=== PATIENT | male | born 1940 | race Caucasian/White ===

== ENCOUNTER 2017-02-14 10:51 | Outpatient (CLI) | payer MEDICARE, OTHER ==
[~2017-02-14] VITALS: Ht 158.8 cm; Wt 71.8 kg
[2017-02-14 13:31] VITALS: BP 147/66; PULSE 65; RESP 18; Ht 158.8 cm; Wt 71.8 kg
[2017-02-14] MEDS ORDERED: FAMO40TA52 PO (14:07)
[2017-02-14] MEDS ORDERED: METO10TA96 PO (14:07)
[2017-02-14] MEDS ORDERED: TAMS0.4C2 PO (14:07)
[2017-02-14] MEDS ORDERED: DUTA0.5C PO (14:07)
--- NOTE | 2017-02-14 16:21 | CONS ---
[facility] INITIAL OUTPATIENT CONSULTATION NOTE DATE OF CONSULTATION: 02/14/2017 PLACE OF SERVICE: [facility] ASSESSMENT AND PLAN: A very pleasant but unfortunate 76-year-old gentleman with multiple comorbid issues as well as a complicated presentation of a mass in the liver as well as mass in the spleen in the setting of prior bladder cancer as well as cirrhosis that is likely due to hepatitis C as well as alcohol abuse. I agree with Dr. Hicks' impression that this is likely not going to be benefited by surgical removal, given presence of a lesion in the spleen. However, the picture is a somewhat unusual presentation for hepatocellular carcinoma and for this reason, I strongly recommended that we consider a percutaneous image-guided liver biopsy at which point we can also biopsy the normal liver and see the degree of the cirrhosis. If this is hepatocellular carcinoma and has metastasized to the spleen, then the treatment options are significantly limited. Surgery would not be an option. Local treatment of the liver would only treat the liver, but they would not change the splenic issue and should essentially be reserved for palliative symptom control-type interventions. Systemic chemotherapy unfortunately has very little efficacy against hepatocellular carcinoma, but could be entertained as part of the treatment. Certainly maximization of quality of life should be highest priority during any treatment phase and afterwards. If the lesion proves to be different than hepatocellular carcinoma, the treatment may differ as well and could potentially have different expected outcomes. A Multidisciplinary Tumor Board presentation would be very useful in this setting as well. I explained all of this in detail with the patient and family and answered all their questions to the best of my ability. I believe that the patient and family understood and agreed with the plan. With above assessment, I recommended the followin. Percutaneous liver biopsy to include biopsy of normal liver. 2. Multidisciplinary Tumor Board presentation. 3. Follow up with us and oncology as per above. Thank you again for allowing us to participate in the care of this very pleasant gentleman and his wonderful family. If there are any questions, please feel free to contact me at [phone]. UPDATED CLINICAL SUMMARY: A very pleasant but unfortunate 76-year-old gentleman with multiple comorbid issues including history of bladder cancer, status post surgery in 2012 as well as hepatitis C and alcohol abuse until about a year ago, presenting with a rather complicated picture of right hepatic lobe mass that appears to be 7 cm x 4.5 lesion in the background of moderate to severe cirrhotic changes, worrisome for malignant process. Interestingly, the patient also has ill-defined large splenic lesion occupying a significant portion of the spleen measuring up to 11 cm in craniocaudal length. The liver lesion is read as LI-RADS/OPTN, Category 5 B and suspicious for malignancy. COMORBIDITIES: 1. BMI 28.5. 2. Hepatitis C, genotype 2, platelets 95,000, INR 1.45, total bilirubin 0.6, albumin 2.9, 11/2016; CT abdomen and pelvis 11/22/2016 showed above-mentioned lesion which was thought to be new compared to CT of the abdomen and pelvis 2013. 3. Liver cyst. 4. Hepatitis A immune. 5. Hepatitis B immune. 6. Alcoholism in remission, quit a year ago. 7. Glaucoma. 8. History of head trauma around 2009 while in [place]. He has memory problems and headaches. 9. Bladder difficulties including history of bladder cancer, status post cystoscopy 11/21/2016 showing no evidence of papillary bladder tumor. 10. Status post eye surgery 2013. 11. Status post endoscopy. 12. History of urinary frequency and urgency. 13. Alzheimer's. 14. Neck and cervical spine fracture. 15. Osteoporosis. 16. Degenerative arthritis. 17. High-grade transitional cell carcinoma of bladder, grade III with lamina propria invasion and carcinoma in situ, non-muscle invasive. 18. Epigastric lipoma status post removal 20 years ago. 19. Above-mentioned alcohol abuse, a large prostate with lower urinary tract symptoms. 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 21. Esophageal varices grade I/type 2, gastroesophageal varices. 22. Acute gastritis. 23. H. pylori negative, but antrum with mild reactive gastropathy. 14. Status post colonoscopy 10/31/2013 showing internal hemorrhoids and 8 mm polyp in the hepatic flexure as well as diverticulosis in the ascending colon. Benign biopsy findings. HISTORY OF PRESENT ILLNESS: The patient is a very pleasant but unfortunate 76- year-old gentleman with above-mentioned complex past medical and surgical history who was referred to us for a second opinion regarding possible management of his liver mass which appears to be hepatocellular carcinoma in the setting of hepatitis C as well as alcohol-related cirrhosis. Patient also has the above-mentioned history of bladder cancer and has the splenic lesion which is somewhat unusual in the setting. Patient was seen by Dr. Meng Hicks who had recommended no surgical intervention. Patient did not have any major complaints during my visit, but the family reported that he has lost quite a bit of weight and has no appetite and is complaining of fatigue. ALLERGIES: NO KNOWN DRUG ALLERGIES. MEDICATIONS: Include: 1. Avodart. 2. Famotidine. 3. Metoclopramide. 4. Tamsulosin. SOCIAL HISTORY: The patient was born in [facility]. He is and has 3 children and currently is retired. He did receive transfusions at age 21. He used to drink heavily until a few years ago. He does not report any smoking and no intravenous drug use. FAMILY HISTORY: Patient's mother of old age. Father is also and there is no mention of major medical, surgical or oncologic problems in the family. REVIEW OF SYSTEMS: Other than the above-mentioned, there are no other pertinent positives or pertinent negatives in a complete 14-point review of systems. PHYSICAL EXAMINATION: GENERAL: The patient appears to be a very pleasant gentleman of descent, appearing stated age, sitting in a chair comfortably and in no acute distress. His BMI is 28.5. VITAL SIGNS: Temperature 97.6, blood pressure 147/66, pulse 65, respiratory rate 18, pulse oximetry 98% on room air. HEENT: Normocephalic and atraumatic. Extraocular muscles and hearing are grossly intact bilaterally and symmetrically. Sclerae are nonicteric. Oral cavity is clear; oral mucosa appeared to be pink and moist. Dentition: poor. NECK: Supple. There is no lymphadenopathy or JVD. There is no submental, submandibular or supraclavicular lymphadenopathy. CHEST: Rises symmetrically with each breath; patient is breathing comfortably. There are no audible wheezes, rales or rhonchi on the gross exam. HEART: Pulse is regular and palpable on the right wrist. Capillary refill was normal. Carotid pulses are palpable bilaterally and symmetrically in the neck. EXTREMITIES: Lower extremities contain no pitting edema around the ankles bilaterally and symmetrically. ABDOMEN: Soft, nondistended, and for the most part nontender. There is no evidence of caput medusae, engorged subcutaneous veins, obvious organomegaly or ascites. There are no peritoneal signs or guarding. SKIN: Appears to be pink and feels warm to touch. NEUROLOGIC: Awake, alert, and follows commands appropriately. LABORATORY DATA: Dated 11/21/2016: Creatinine 1.1, total bilirubin 0.6, alkaline phosphatase 133, AST 251, ALT 199. CEA 1.2. CA 19-9 is 24. Also, see above. IMAGING STUDIES: As above. Note that I personally reviewed all the available and pertinent images and I agree in general with their overall reported findings. Dictated By: ZAHIDA KIDD MD KK/NTS Conf#: [id number] DID#: [id number] CC: Kalin Vargas MD; Robert Enriquez MD; Kip Galvan MD; Johnny Garcia MD;* EndCC* MTDD
== END 2017-02-14 15:36 | disposition home or self-care (01) ==
LOC: HPC 10:51
PROVIDERS: ATTEND Transplant Surgery
DX: R16.0 Hepatomegaly, not elsewhere classified (principal); R16.1 Splenomegaly, not elsewhere classified; Z85.51 Personal history of malignant neoplasm of bladder; B19.20 Unspecified viral hepatitis C without hepatic coma; K74.60 Unspecified cirrhosis of liver; F10.21 Alcohol dependence, in remission; H40.9 Unspecified glaucoma; G30.9 Alzheimer's disease, unspecified; F02.80 Dementia in other diseases classified elsewhere, unspecified severity, without behavioral disturbance, psychotic disturbance, mood disturbance, and anxiety
CPT/HCPCS: G0463

== ENCOUNTER 2017-04-11 10:59 | Outpatient (CLI) | payer MEDICARE, OTHER ==
[~2017-04-11] VITALS: Ht 158.8 cm; Wt 62.7 kg
[~2017-04-11 10:59] MED LIST: DUTA0.5C PO; FAMO40TA52 PO; METO10TA96 PO; TAMS0.4C2 PO
[2017-04-11 11:12] VITALS: BP 129/61; PULSE 56; RESP 18; Ht 158.8 cm; Wt 62.7 kg
[2017-04-11] MEDS ORDERED: DICL75TA2 PO (11:31)
[2017-04-11] MEDS ORDERED: SPIR50TA PO (11:31)
[2017-04-11] MEDS ORDERED: DICY10CA60 PO (11:31)
[2017-04-11] MEDS ORDERED: OMEP40CA6 PO (11:31)
[2017-04-11] MEDS ORDERED: CYCL1DRO BOTH EYES (11:31)
--- NOTE | 2017-04-11 20:10 | PN ---
Date/Time of Note Date/Time of Note DATE: 04/11/17 TIME: 20:06 Assessment/Plan Assessment/Plan Assessment/Plan [facility] Outpatient Progress Note Date of Service: 04/11/2017 Today's Assessment & Plan: Rather complicated picture of borderline resectable hepatocellular carcinoma in the setting of cirrhosis. We had a chance to present the patient's case in our multidisciplinary tumor board where the recommendation was to consider transarterial chemoembolization as an attempt to control this lesion and to perhaps decreased size while considering selective right-sided portal vein embolization as an attempt to increase the volume of the remaining liver and to maximize degree of safety of a potential surgical resection. Surgical resection would include removal of segments 5 and 6 at a minimum. It may require a formal right lobectomy, which I do not believe that the patient could tolerate. These issues may have to be sorted out in the operating room with intraoperative ultrasound. Furthermore, patient had a decompensation per the report which included ascites that required tapping and this certainly is concerning about his resectability. Per the report, transarterial chemo sedation was performed at an outside hospital. I have currently requested available records to review. If that is true, the patient could then wait for 2 -3 months prior to reimaging to see the effects of the TACE. In the meantime, portal vein embolization could be considered and arrange for. Overall, I believe that the patient's chances of being resectable are low. He could potentially be a transplant candidate and for this reason I am also recommending that he undergoes transplant evaluation. I explained all this to the patient and family and answered all their questions to the best my ability. I believe that they understood and agreed with the plans. With above assessment, I've recommended the following for today: 1. Obtain and review outside records 2. If TACE has indeed been done, to schedule patient for follow-up liver CT in 2-3 months 3. Discussed selective portal vein embolization with interventional radiology and arrange for it if indicated 4. Careful follow-up with hepatology 5. Careful follow-up with us 6. Transplant evaluation Thank you again for your great care of this very pleasant gentleman and his wonderful family. If there are any questions, please feel free to call me at . Nature of presenting problem: High complexity Decision making: High complexity Disclaimer: Inadvertent spelling and grammatical errors are likely due to EHR/ dictation software use and do not reflect on the quality of delivered patient care. Also, please note that the electronic time recorded on this node does not necessarily reflect the actual time of the visit. Updated Clinical Summary: A very pleasant but unfortunate 76-year-old gentleman with multiple comorbid issues including history of bladder cancer, status post surgery in 2012 as well as hepatitis C and alcohol abuse until about a year ago, presenting with a rather complicated picture of right hepatic lobe mass that appears to be 7 cm x 4.5 lesion in the background of moderate to severe cirrhotic changes, worrisome for malignant process. Interestingly, the patient also has ill-defined large splenic lesion occupying a significant portion of the spleen measuring up to 11 cm in craniocaudal length. The liver lesion is read as LI-RADS/OPTN, Category 5 B and suspicious for malignancy. COMORBIDITIES: 1. BMI 28.5. 2. Hepatitis C, genotype 2, platelets 95,000, INR 1.45, total bilirubin 0.6, albumin 2.9, 11/2016; CT abdomen and pelvis 11/22/2016 showed above-mentioned lesion which was thought to be new compared to CT of the abdomen and pelvis 2013. 3. Liver cyst. 4. Hepatitis A immune. 5. Hepatitis B immune. 6. Alcoholism in remission, quit a year ago. 7. Glaucoma. 8. History of head trauma around 2009 while in [place]. He has memory problems and headaches. 9. Bladder difficulties including history of bladder cancer, status post cystoscopy 11/21/2016 showing no evidence of papillary bladder tumor. 10. Status post eye surgery 2013. 11. Status post endoscopy. 12. History of urinary frequency and urgency. 13. Alzheimer's. 14. Neck and cervical spine fracture. 15. Osteoporosis. 16. Degenerative arthritis. 17. High-grade transitional cell carcinoma of bladder, grade III with lamina propria invasion and carcinoma in situ, non-muscle invasive. 18. Epigastric lipoma status post removal 20 years ago. 19. Above-mentioned alcohol abuse, a large prostate with lower urinary tract symptoms. 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 21. Esophageal varices grade I/type 2, gastroesophageal varices. 22. Acute gastritis. 23. H. pylori negative, but antrum with mild reactive gastropathy. 14. Status post colonoscopy 10/31/2013 showing internal hemorrhoids and 8 mm polyp in the hepatic flexure as well as diverticulosis in the ascending colon. Benign biopsy findings. Subjective: [No major events or complaints other than above]; [no abd pain and currently not on pain medications; no n/v/d; no sob or cp; + flatus; + BM and normal; + activity] Objective: Vitals: See below Exam: GENERAL: On exam, the patient was [sitting up in a chair] and appeared to be [ comfortable and in no acute distress]. ABDOMEN: [Soft, nontender and nondistended.] [There are no peritoneal signs or guarding.] SKIN: Skin appears to be pink and feels warm to touch. NEUROLOGIC: Patient is [awake, alert, and follows commands appropriately.] Exam/Review of Systems Vital Signs Vitals Vital Signs Date Time Temp Pulse Resp B/P Pulse Ox O2 Delivery O2 Flow Rate FiO2 04/11/17 11:12 98.2 56 18 129/61 100 Room Air ZAHIDA KIDD M.D. Apr 11, 2017 20:10
== END 2017-04-11 16:21 | disposition home or self-care (01) ==
LOC: HPC 10:59
PROVIDERS: ATTEND Transplant Surgery
DX: C22.8 Malignant neoplasm of liver, primary, unspecified as to type (principal); K74.60 Unspecified cirrhosis of liver
CPT/HCPCS: G0463